=== PATIENT | female | born 1960 ===

== ENCOUNTER 2023-12-22 06:21 | Day surgery (SDC) | payer OTHER ==
[2023-12-22] MEDS ORDERED: CEFAZOLIN SODIUM 1,000 MG VIAL ONE (07:44)
[2023-12-22] MEDS ORDERED: FAMOTIDINE/PF 20 MG/2 ML VIAL ONE (09:46)
[2023-12-22] MEDS ORDERED: CEFAZOLIN SODIUM 1,000 MG VIAL IV ONE (10:15)
[2023-12-22] MEDS ORDERED: FAMOTIDINE/PF 20 MG/2 ML VIAL IV ONE (10:30)
== END 2023-12-22 12:05 | disposition home or self-care (01) ==
LOC: CIR.AMB 06:21
PROVIDERS: ATTEND Surgery Surgery of the Hand
DX: M67.843 Other specified disorders of tendon, right hand (principal); M65.141 Other infective (teno)synovitis, right hand; I10 Essential (primary) hypertension; Z20.822 Contact with and (suspected) exposure to COVID-19